=== PATIENT | female | born 1955 | race Caucasian/White ===

== ENCOUNTER 2022-04-05 00:31 | Day surgery (SDC) | payer OTHER, SELFPAY ==
[2022-03-22 08:46] VITALS: BMI 39.9
--- NOTE | 2022-04-04 16:25 | PM.HPGS ---
History of Present Illness History of Present Illness Consent: Risks, benefits, and alternatives have been discussed and questions answered. Patient agrees to proceed with procedure. Chief complaint: neoplasm screening, gerd, dysphagia Narrative: Valencia Salcedo is a 66 year old female who began having dysphagia in her mid upper chest if she would eat too fast or take big bites if she would lay down she would feel like she would be choking and have a chest discomfort. She also felt like solids would move slower down her esophagus.? Her PCP placed on omeprazole 40 mg A few weeks ago And it has helped. she is due for colon cancer screening Review of Systems Review of Systems: All systems reviewed & are unremarkable except as noted in HPI and below PMFSH Past Medical History Medical History Colon cancer screening Erosion of transobturator mid-urethral sling Obesity, morbid, BMI 40.0-49.9 Surgical History Surgical History Hx of tonsillectomy Total knee replacement status Family History Family History Mother Asthma Alzheimer disease Father Cancer Social History Social History Smoking status: Never smoker Second hand tobacco smoke exposure: No Alcohol intake: never Substance use: never Substance use type: does not use Living arrangements: with family Spiritual care concerns: No Meds Home Medications and Allergies Home Medications Medication Instructions Recorded Confirmed Type amlodipine 5 mg tablet 5 mg PO DAILY 02/01/22 04/05/22 History famotidine 40 mg tablet 40 mg PO DAILY #30 tabs 02/19/22 04/05/22 Rx ropinirole 1 mg tablet 1 mg PO DAILY 03/22/22 04/05/22 History Allergies Allergy/AdvReac Type Severity Reaction Status Date / Time No Known Allergies Allergy Verified 04/05/22 06:15 Exam Const: General: alert Orientation/consciousness: patient oriented x3 Resp: Auscultation: clear to auscultation bilaterally Cardio: Rhythm: regular rhythm GI: GI Palp: Yes Soft to palpation and No Tenderness to palpation present (GI) Neuro: General: patient oriented x3 Assessment and Plan Assessment and plan (1) Dysphagia: Code(s): R13.10 - Dysphagia, unspecified Status: Acute Assessment and Plan: EGD with possible biopsy or dilatation or cautery. (2) Colon cancer screening: Code(s): Z12.11 - Encounter for screening for malignant neoplasm of colon Status: Acute Assessment and Plan: Colonoscopy with possible biopsy or polypectomy or cautery or injection of substances.
[2022-04-05 06:15] VITALS: BP 146/83; PULSE 83; RESP 16; TEMP 36.3; O2SAT 99; BMI 41.3
[2022-04-05] MEDS: LACTATED RINGERS 1,000 ML 150 ML IV CONT (06:29)
--- NOTE | 2022-04-05 06:47 | P.PNAN_ITS ---
Anes - Initial Pre Proc Eval Procedure: Operation Date: 04/05/22 07:30 Proposed Procedures p Esophagogastroduodenoscopy&Screen Colon - Jose Alfredo Garcia MD Date/Time: 04/05/22 06:47 Surgeon: Jose Alfredo Garcia MD Pre Op Diagnosis: neoplasm screening, gerd, dysphagia Patient Data Age: 66 Gender: F Height: 1.6 m Weight: 105.7 kg Last Vital Signs Temp 36.3 C L 04/05/22 06:15 Pulse 83 04/05/22 06:15 Resp 16 04/05/22 06:15 BP 146/83 H 04/05/22 06:15 Pulse Ox 99 04/05/22 06:15 O2 Del Method Room Air 04/05/22 06:15 Allergies Allergy/AdvReac Type Severity Reaction Status Date / Time No Known Allergies Allergy Verified 04/05/22 06:15 Home Medications Medication Instructions Recorded Confirmed Type amlodipine 5 mg tablet 5 mg PO DAILY 02/01/22 04/05/22 History famotidine 40 mg tablet 40 mg PO DAILY #30 tabs 02/19/22 04/05/22 Rx ropinirole 1 mg tablet 1 mg PO DAILY 03/22/22 04/05/22 History Patient hx anesthesia problems: none Family hx anesthesia problems: none Results Review: All pre-operative results and documents have been reviewed as part of the pre- operative evaluation. [facility] Past Medical History Medical History Colon cancer screening Erosion of transobturator mid-urethral sling Obesity, morbid, BMI 40.0-49.9 Surgical History Surgical History (Updated 04/05/22 @ 06:47 by Radu Gilliam MD) Hx of tonsillectomy Total knee replacement status Family History Family History Mother Asthma Alzheimer disease Father Cancer Social History Social History Smoking status: Never smoker Second hand tobacco smoke exposure: No Alcohol intake: never Substance use: never Substance use type: does not use Living arrangements: with family Spiritual care concerns: No Anes - Eval Final PreProcedure Day of Procedure 12/02/22 06:47 Patient weight: morbidly obese Heart: regular rate and rhythm Lungs: clear to auscultation Airway: Mallampati scale class II Neurological: alert and oriented Last oral intake: >/= 8 hours ASA classification: III Emergent: no Anesthetic plan: proceed Anesthesia type and monitoring: general GIVS and standard monitoring Results Review: All pre-operative results and documents have been reviewed as part of the pre- operative evaluation. Informed Consent: The patient's anesthetic plan and its attendant risks and benefits were discussed with the patient/family/POA. Questions were solicited and answers provided to the satisfaction of the patient/family/POA.
--- NOTE | 2022-04-05 07:49 | SUR.OPER ---
EGD started at [id number]. Colonoscopy began at 0749
[2022-04-05 08:00] VITALS: BP 121/68; PULSE 95; RESP 28; O2SAT 97
[2022-04-05 08:10] VITALS: BP 118/71; PULSE 95; RESP 22; O2SAT 97
[2022-04-05 08:20] VITALS: BP 118/82; PULSE 86; RESP 22; O2SAT 97
== END 2022-04-05 08:31 | disposition home or self-care (01) ==
PROVIDERS: PCP Internal Medicine; Visit Provider Internal Medicine Gastroenterology
PROC: 0DJ08ZZ Inspection of Upper Intestinal Tract, Via Natural or Artificial Opening Endoscopic (ICD-10-PCS; CPT 43235; principal; 2022-04-05 07:30)
DX: Z12.11 Encounter for screening for malignant neoplasm of colon (principal); K57.30 Diverticulosis of large intestine without perforation or abscess without bleeding; K22.2 Esophageal obstruction; K44.9 Diaphragmatic hernia without obstruction or gangrene; K21.00 Gastro-esophageal reflux disease with esophagitis, without bleeding; E66.01 Morbid (severe) obesity due to excess calories; Z68.41 Body mass index [BMI] 40.0-44.9, adult
CPT/HCPCS: 43249; G0121; 88305; C1726; J2704; J7120